=== PATIENT | female | born 1955 | race Caucasian/White ===

== ENCOUNTER 2019-03-07 23:01 | Emergency (ER) | payer OTHER ==
[~2019-03-07] VITALS: Ht 152.4 cm; Wt 54.4 kg
[2019-03-07 23:07] VITALS: Ht 152.4 cm; Wt 54.4 kg
[2019-03-08 04:46] VITALS: BP 111/64
== END 2019-03-08 05:28 | disposition home or self-care (01) ==
LOC: ED 23:01
DX: F10.129 Alcohol abuse with intoxication, unspecified (principal)